=== PATIENT | female | born 1975 | race Caucasian/White ===

== ENCOUNTER 2022-03-09 08:06 | Day surgery (SDC) | payer MEDICARE, OTHER ==
[2022-03-08 10:29] VITALS: BMI 43.0
[~2022-03-09 08:06] MED LIST: ALPRAZolam 0.25 MG TAB PO PRN; ALPRAZolam 0.5 MG TAB PO PRN; ASPIRIN 325 MG TAB PO STA; ATORVASTATIN 80 MG TAB PO STA; HEPARIN SODIUM,PORCINE 10,000 UNIT in SODIUM CHLORIDE 0.9% 1,000 ML IRRIGATION PRN; HEPARIN SODIUM,PORCINE 2,500 UNIT in SODIUM CHLORIDE 0.9% 250 ML IRRIGATION PRN; NITROGLYCERIN SL TABS 0.4 MG TAB SUBLINGUAL PRN; SODIUM CHLORIDE 0.9% 1,000 ML in EMPTY BAG 1 BAG IV SCH
[2022-03-09 08:42] LABS: Glucose,Whole Blood 112 mg/dL (70-110)
[2022-03-09 08:46] LABS: Basophils # (A) 0.2 k/uL (0-0.2); Basophils % (A) 2 %; Eosinophils # (A) 0.3 k/uL (0-0.7); Eosinophils % (A) 3 %; HCT 46.5 % (34.0-46.0); HGB 14.3 gm/dL (11.4-16.0); Lymphocytes % (A) 20 %; MCH 26.9 pg (25.0-35.0); MCHC 30.6 g/dL (31.0-37.0); MCV 87.8 fL (80.0-100.0); Mean Platelet Volume 7.3; Monocytes # (A) 0.5 k/uL (0-1.0); Monocytes % (A) 5 %; Neutrophils # (A) 6.8 k/uL (1.3-7.7); Neutrophils % (A) 69 %; Platelet Count 260 k/uL (150-450); RDW 14.9 % (11.5-15.5); WBC 9.9 k/uL (3.8-10.6)
[2022-03-09 08:51] VITALS: RESP 18; TEMP 98.3
[2022-03-09 09:00] LABS: African American GFR (CKD) >90 (>60 ml/min/1.73 sqM); Anion Gap 9 mmol/L; Blood Urea Nitrogen 6 mg/dL (7-17); Calcium 8.6 mg/dL (8.4-10.2); Carbon Dioxide 24 mmol/L (22-30); Chloride 105 mmol/L (98-107); Glucose 116 mg/dL (74-99); Non-African American GFR(CKD) >90 (>60 ml/min/1.73 sqM); Sodium 138 mmol/L (137-145)
[2022-03-09 09:01] LABS: Potassium 4.9 mmol/L (3.5-5.1)
[2022-03-09] MEDS ORDERED: MIDAZOLAM 2 MG/2 ML VIAL IVP ONE (09:04)
[2022-03-09] MEDS ORDERED: fentaNYL (PF) 50 MCG/ML 2 ML AMP IVP ONE (09:04)
[2022-03-09] MEDS ORDERED: LIDOCAINE 1% INJ 10MG/ML (30 ML VIAL-PF) SQ ONE (09:07)
[2022-03-09] MEDS ORDERED: VERAPAMIL SYRINGE (5 MG/10 ML) INTRAARTER ONE (09:14)
[2022-03-09] MEDS ORDERED: HEPARIN SODIUM 1,000 UN/ML (10ML VL) IVP ONE (09:18)
[2022-03-09] MEDS ORDERED: IOPAMIDOL-370 125ML BTL INJ ONE (09:31)
[2022-03-09] MEDS ORDERED: RX INFO: IV CONTRAST WAS GIVEN 1 EACH MISC MISCELLANE PRN (09:42)
[2022-03-09 13:32] VITALS: BP 141/73; PULSE 76
--- NOTE | 2022-03-09 20:53 | CC ---
CARDIAC CATHETERIZATION REPORT PROCEDURE: Cardiac catheterization. INDICATION: Atypical chest pain and shortness of breath with an abnormal stress test showing ischemia in LAD distribution. The patient has known bicuspid aortic valve with aortic regurgitation. PROCEDURE NOTE: After obtaining informed consent, left heart catheterization and coronary angiogram were performed via the right radial artery using size 3 and 5 right and left Bentley catheters. An aortogram was performed using a pigtail catheter. The patient tolerated the procedure well without any obvious immediate complications. Patient received moderate conscious sedation. Total sedation time was 27 minutes. Using a micropuncture needle, right radial artery access was obtained. A 6-[place] sheath was introduced into the right radial artery through which catheter and wires were floated into the ascending aorta under fluoroscopic guidance. The patient tolerated the procedure well, received 5 mg of verapamil and 5000 units of heparin per protocol. A TR band was used for hemostasis at the end of the procedure. FINDINGS: 1. Hemodynamics: Central aortic pressure was 110/70 mm. 2. Aortogram: Aortogram showed a mildly dilated ascending aorta with 2+ aortic regurgitation. 3. Angiographic data: a.Right coronary artery. Right coronary artery is a large dominant vessel and is free of significant stenosis. b.Left main coronary artery is a normal-sized vessel and is free of stenosis. Divides into left anterior descending coronary artery and circumflex coronary artery. Circumflex coronary artery is a small nondominant vessel and is free of significant disease. LAD and its branches are free of significant stenosis. CONCLUSIONS: 1. Right-dominant circulation, low evidence of significant obstructive disease in the LAD. 2. False-positive stress test. 3. 2+ aortic regurgitation. PLAN: Patient's management is going to be in the form of risk factor modification and medical therapy. MMODL / IJN: [id number] /
== END 2022-03-09 13:33 | disposition home or self-care (01) ==
LOC: CATHCVL 08:06
PROVIDERS: ATTEND Internal Medicine Cardiovascular Disease
DX: I35.1 Nonrheumatic aortic (valve) insufficiency (principal); F17.210 Nicotine dependence, cigarettes, uncomplicated; G62.9 Polyneuropathy, unspecified; Z79.82 Long term (current) use of aspirin; Z79.899 Other long term (current) drug therapy; Z88.0 Allergy status to penicillin; Z88.2 Allergy status to sulfonamides
CPT/HCPCS: 93454; 93567; 80048; 85025; C1769; C1894; J2250; J2001; J3010; J1644; Q9967

== ENCOUNTER 2022-10-10 11:09 | Day surgery (SDC) | payer MEDICARE, OTHER ==
[2022-10-06 08:50] VITALS: BMI 40.2
[~2022-10-10 11:09] MED LIST changes: +ACETAMINOPHEN TAB 500 MG TAB PO PRN; -ALPRAZolam 0.25 MG TAB PO PRN; -ALPRAZolam 0.5 MG TAB PO PRN; -ASPIRIN 325 MG TAB PO STA; -ATORVASTATIN 80 MG TAB PO STA; +DEXAMETHASONE SOD PHOSPHATE 4 MG/ML 1 ML VIAL IV ONE; -HEPARIN SODIUM,PORCINE 10,000 UNIT in SODIUM CHLORIDE 0.9% 1,000 ML IRRIGATION PRN; -HEPARIN SODIUM,PORCINE 2,500 UNIT in SODIUM CHLORIDE 0.9% 250 ML IRRIGATION PRN; +HEPARIN SODIUM,PORCINE/PF 5,000 UNIT/0.5 ML SYRINGE SQ PRN; +HYDROmorphone 0.5 MG/0.5 ML SYRINGE IVP PRN; +LACTATED RINGERS 1,000 ML IV SCH; +LIDOCAINE 1% (10MG/ML) FOR IV START INTRADERMA PRN; -NITROGLYCERIN SL TABS 0.4 MG TAB SUBLINGUAL PRN; +ONDANSETRON 4 MG/2 ML VIAL IVP ONE; -SODIUM CHLORIDE 0.9% 1,000 ML in EMPTY BAG 1 BAG IV SCH
--- NOTE | 2022-10-10 11:27 | P.GSHP ---
History of Present Illness H&P Date: 10/10/22 Chief Complaint: Incarcerated umbilical hernia 47-year-old female seen in the office a few months ago. Patient with enlarging hernia that is now more symptomatic. This is present at the umbilicus. No longer reduces spontaneously. Patient still smoking. BMI 40. Past Medical History Past Medical History: Asthma, Diabetes Mellitus, Hyperlipidemia, Hypertension, Osteoarthritis (OA), Sleep Apnea/CPAP/BIPAP Additional Past Medical History / Comment(s): c-pap machine, vertigo, allergy induced asthma, neuropathy lower extremities, aortic valve stenosis. History of Any Multi-Drug Resistant Organisms: None Reported Past Surgical History: Section, Cholecystectomy, Heart Catheterization, Uterine Ablation Additional Past Surgical History / Comment(s): D & C. TUBE IN LT EAR Past Anesthesia/Blood Transfusion Reactions: Previous Problems w/ Anesthesia, Postoperative Nausea & Vomiting (PONV) Additional Past Anesthesia/Blood Transfusion Reaction / Comment(s): mom=ponv Past Psychological History: Depression Additional Psychological History / Comment(s): . Smoking Status: Former smoker Past Alcohol Use History: None Reported Additional Past Alcohol Use History / Comment(s): QUIT SMOKING OCTOBER 01, 2022., HX OF 1 PPD , STARTED SMOKING AGE 14 Past Drug Use History: None Reported - Past Family History Brother(s) Family Medical History: Cancer, Deep Vein Thrombosis (DVT) Additional Family Medical History / Comment(s): 2 BROTHERS WITH CANCER. 1 BROTHER WITH BLOOD CLOTS Mother Family Medical History: Deep Vein Thrombosis (DVT) Sister(s) Family Medical History: Cancer Medications and Allergies Home Medications Medication Instructions Recorded Confirmed Type Aspirin [Adult Low Dose Aspirin EC] 81 mg PO DAILY 03/08/22 10/06/22 History Cetirizine HCl [Zyrtec] 10 mg PO DAILY 03/08/22 10/06/22 History Cholecalciferol [Vitamin D3 (25 100 mcg PO DAILY 03/08/22 10/06/22 History Mcg = 1000 Iu)] DULoxetine HCL [Cymbalta] 30 mg PO DAILY 03/08/22 10/06/22 History Fluticasone Nasal [place] [Flonase 1 spray NASAL DAILY 03/08/22 10/06/22 History Nasal [place]] Gabapentin [Neurontin] 100 mg PO HS 03/08/22 10/06/22 History Ibuprofen [Motrin] 800 mg PO Q8H PRN 03/08/22 10/06/22 History metFORMIN HCL 1,000 mg PO DAILY 03/08/22 10/06/22 History Furosemide [Lasix] 20 mg PO DAILY 03/09/22 10/06/22 History Potassium Chloride ER [K-Dur 10] 10 meq PO DAILY 03/09/22 10/06/22 History Albuterol Inhaler [Ventolin Hfa 1 - 2 puff INHALATION Q6H PRN 10/06/22 10/06/22 History Inhaler] [place]ian/D3/Mag11/Zinc/Calculator Operator/Darius/Bor 1 each PO DAILY 10/06/22 10/06/22 History [Caltrate 600+D Plus Tablet] Meclizine [Antivert] 25 mg PO DIRECTED PRN 10/06/22 10/06/22 History [place]-3/Dha/Epa/Fish Oil [Fish Oil 1 each PO DAILY 10/06/22 10/06/22 History 1,000 mg Softgel] lisinopriL [Zestril] 10 mg PO DAILY 10/06/22 10/06/22 History Allergies Allergy/AdvReac Type Severity Reaction Status Date / Time amoxicillin Allergy Unknown Rash/Hives Verified 10/06/22 08:19 clarithromycin [From Biaxin] Allergy Rash/Hives Verified 10/06/22 08:19 Penicillins Allergy Anaphylaxis Verified 10/06/22 08:19 sulfamethoxazole Allergy Rash/Hives Verified 10/06/22 08:19 [From Bactrim] trimethoprim [From Bactrim] Allergy Rash/Hives Verified 10/06/22 08:19 Surgical - Exam Physical exam: General: Well-developed, well-nourished HEENT: Normocephalic, sclerae nonicteric Abdomen: Nontender, nondistended, incarcerated umbilical hernia Extremities: No edema Neuro: Alert and oriented Assessment and Plan (1) Incarcerated umbilical hernia Narrative/Plan: 47-year-old female with incarcerated umbilical hernia. Options reviewed. Given the increasing symptoms we decided that we would proceed with repair at this time. We'll proceed with open repair incarcerated umbilical hernia with mesh. Risks of bleeding, infection, recurrence, bladder and bowel injury, numbness, nerve injury were discussed with the patient. The patient understands and wishes to proceed. Current Visit: Yes Status: Acute Code(s): K42.0 - UMBILICAL HERNIA WITH OBSTRUCTION, WITHOUT GANGRENE SNOMED Code(s): 180341950
[2022-10-10 12:11] LABS: Glucose,Whole Blood 106 mg/dL (70-110)
[2022-10-10] MEDS ORDERED: GLYCOPYRROLATE 0.2 MG/ML 2 ML VIAL ONE (13:12)
[2022-10-10] MEDS ORDERED: PHENYLEPHRINE-0.9% NACL SYG 1,000 MCG/10 ML SYRINGE ONE (13:12)
[2022-10-10] MEDS ORDERED: NEOSTIGMINE 1 MG/ML 10 ML VIAL ONE (13:12)
[2022-10-10] MEDS ORDERED: MIDAZOLAM 2 MG/2 ML VIAL ONE (13:12)
[2022-10-10] MEDS ORDERED: ROCURONIUM 10 MG/ML (5 ML VIAL) IV ONE (13:12)
[2022-10-10] MEDS ORDERED: fentaNYL (PF) 50 MCG/ML 2 ML AMP ONE (13:12)
[2022-10-10] MEDS ORDERED: PROPOFOL 10 MG/ML 20 ML VIAL IV ONE (13:12)
[2022-10-10] MEDS ORDERED: KETOROLAC 15 MG/ML 1 ML VIAL ONE (13:12)
[2022-10-10] MEDS ORDERED: SUCCINYLCHOLINE CHLORIDE 200 MG/10 ML VIAL IV ONE (13:12)
[2022-10-10] MEDS ORDERED: BUPIVACAINE (PF) 0.25% 30 ML VIAL SQ ONE (13:17)
--- NOTE | 2022-10-10 14:34 | P.OP ---
Date of Procedure: 10/10/22 Procedure(s) Performed: PREOPERATIVE DIAGNOSIS: Incarcerated umbilical hernia POSTOPERATIVE DIAGNOSIS: Same PROCEDURE: Open Incarcerated umbilical hernia repair with mesh, partial omentectomy SURGEON: Dr. Alejandre ANESTHESIA: General OPERATIVE PROCEDURE DETAILS: The patient was placed in the operating table in the supine position. A vertical to left sided periumbilical incision was made using the scalpel. The subcutaneous tissues were dissected bluntly and with cautery. The hernia sac was identified. The umbilical attachments to the fascia were divided using electrocautery. The hernia sac was excised with a portion of the omentum. The omentum was ligated using interrupted 3-0 silk sutures. Only one defect was seen. This measured 2.2 x 2.3 cm. The preperitoneal space was then dissected using blunt dissection and electrocautery. The 6.4 cm ventral ex mesh was placed beneath the fascia and sutured in place using trans-fascial 0 Ethibond sutures. The defect was closed using interrupted vest over pants 0 Ethibond mattress sutures. The subcutaneous tissues were reapproximated using inverted 2-0 & 3-0 Vicryl sutures. The umbilicus was tacked back down to the fascia using a 2-0 Vicryl suture. The skin was closed using 4-0 Monocryl sutures. Skin glue and sterile dressings were then applied. HERNIA CHARACTERISTICS: Length: 2.3 cm Width: 2.2 cm Type: Incarcerated umbilical TYPE OF MESH USED: 6.4 cm ventral ex LOCATION OF MESH: Sub-lay FIXATION: Trans-fascial 0 Ethibond PREOPERATIVE DISCUSSION ON SMOKING CESSASTION: Yes PREOPERATIVE DISCUSSION ON MORBID OBESITY: Yes PREOPERATIVE DISCUSSION ON APPROPRIATE USE OF NARCOTIC USE: Yes PREOPERATIVE EDUCATION: Multi Modal, Smoking Cessation and Weight Loss with BMI over 35. DISPOSITION: Stable to recovery room
[2022-10-10 14:59] VITALS: TEMP 97.2
[2022-10-10 15:01] VITALS: RESP 16
[2022-10-10 15:49] VITALS: BP 132/80; PULSE 82
[2022-10-10] MEDS ORDERED: ACETAMINOPHEN TAB 325 MG TAB PO SCH (18:00)
[2022-10-10] MEDS ORDERED: IBUPROFEN 600 MG TAB PO SCH (21:00)
== END 2022-10-10 16:18 | disposition home or self-care (01) ==
LOC: OR 11:09
PROVIDERS: ATTEND Surgery
DX: K42.0 Umbilical hernia with obstruction, without gangrene (principal); J45.909 Unspecified asthma, uncomplicated; E11.9 Type 2 diabetes mellitus without complications; E78.5 Hyperlipidemia, unspecified; I10 Essential (primary) hypertension; G47.30 Sleep apnea, unspecified; Z98.891 History of uterine scar from previous surgery; Z90.49 Acquired absence of other specified parts of digestive tract; Z95.5 Presence of coronary angioplasty implant and graft; Z98.890 Other specified postprocedural states; F32.A Depression, unspecified; Z87.891 Personal history of nicotine dependence; Z79.82 Long term (current) use of aspirin; Z79.1 Long term (current) use of non-steroidal anti-inflammatories (NSAID); Z79.84 Long term (current) use of oral hypoglycemic drugs; Z79.51 Long term (current) use of inhaled steroids; Z88.0 Allergy status to penicillin; Z88.2 Allergy status to sulfonamides; Z88.1 Allergy status to other antibiotic agents; Z79.899 Other long term (current) drug therapy
CPT/HCPCS: 49592; J1100; J0690; J2405; J1644; 81025